=== PATIENT | female | born 1980 | race Caucasian/White ===

== ENCOUNTER → 2017-05-31 | Outpatient (CLI) | payer BC ==
[~2017-05-31] MED LIST: ACET500C PO; ANUS2.5C2 PR; COLA100C5 PO; IBUP200C10 PO; MILKSUS PO
[2017-05-31 09:42] LABS: FREE T4 2.25 NG/DL (0.76-1.46)
[2017-05-31 09:44] LABS: PROLACTIN 6.8 NG/ML
== END ==
LOC: M LAB 08:45
PROVIDERS: ATTEND Nurse Practitioner Women's Health
DX: N91.2 Amenorrhea, unspecified (principal)

== ENCOUNTER → 2017-07-06 | Outpatient (REF) | payer BC ==
[2017-07-06 13:04] LABS: FREE T4 2.27 NG/DL (0.76-1.46)
[2017-07-07 08:49] LABS: THYROID PEROXIDASE ANTIBODY < 28.0 U/ML (<60.0)
== END ==
LOC: M LABDRAW1 10:51
DX: R94.6 Abnormal results of thyroid function studies (principal)
CPT/HCPCS: 84443

== ENCOUNTER 2020-04-14 19:09 | Emergency (ER) | payer BC ==
[~2020-04-14] VITALS: Ht 175.3 cm; Wt 123.8 kg
[~2020-04-14 19:09] MED LIST changes: -IBUP200C10 PO; +IBUP200C25 PO; +MILK120011 PO; -MILKSUS PO
[2020-04-14 19:10] VITALS: BP 137/83
[2020-04-14] MEDS ORDERED: AUGMENTIN 875 MG TAB PO ONE (20:00)
[2020-04-14] MEDS ORDERED: AUGM875T28 PO (20:04)
== END 2020-04-14 20:17 | disposition home or self-care (01) ==
LOC: M ED 19:09
DX: K61.1 Rectal abscess (principal); Z87.891 Personal history of nicotine dependence; Z88.8 Allergy status to other drugs, medicaments and biological substances

== ENCOUNTER 2020-04-18 19:36 | Emergency (ER) | payer BC ==
[~2020-04-18] VITALS: Ht 175.3 cm; Wt 121.5 kg
[~2020-04-18 19:36] MED LIST changes: +AUGM875T28 PO
[2020-04-18 19:37] VITALS: BP 122/74
[2020-04-18] MEDS ORDERED: LIDOCAINE W/EPINEPHRINE 1% 20ML VIAL SC ONE (21:00)
== END 2020-04-18 21:34 | disposition home or self-care (01) ==
LOC: M ED 19:36
DX: K61.1 Rectal abscess (principal); Z88.0 Allergy status to penicillin

== ENCOUNTER → 2020-05-06 | Outpatient (REF) | payer BC ==
[2020-05-06 17:12] LABS: HEMATOCRIT 42.6 % (36.0-47.0); HEMOGLOBIN 13.7 g/dl (12.0-15.5); MEAN CORPUSCULAR HEMOGLOBIN 28.5 pg (27.0-33.0); MEAN CORPUSCULAR HGB CONC 32.2 g/dl (32.0-36.5); MEAN CORPUSCULAR VOLUME 88.6 fl (80.0-96.0); PLATELET COUNT, AUTOMATED 199 10^3/uL (150-450); RED BLOOD COUNT 4.81 10^6/uL (4.00-5.40); WHITE BLOOD COUNT 4.6 10^3/uL (4.0-10.0)
[2020-05-06 17:34] LABS: ALBUMIN 3.7 GM/DL (3.2-5.2); ALT/SGPT 37 U/L (12-78); BILIRUBIN,TOTAL 0.5 MG/DL (0.2-1.0); BLOOD UREA NITROGEN 12 MG/DL (7-18); CARBON DIOXIDE LEVEL 29 MEQ/L (21-32); CHLORIDE LEVEL 108 MEQ/L (98-107); CHOLESTEROL LEVEL 163 MG/DL (<200); CHOLESTEROL RISK RATIO 3.196 (<5); CREATININE FOR GFR 0.76 MG/DL (0.55-1.30); GLOMERULAR FILTRATION RATE > 60.0 (>60); GLUCOSE, FASTING 91 MG/DL (70-100); HDL CHOLESTEROL 51 MG/DL (>40); LDL CHOLESTEROL 89 MG/DL (<100); NON-HDL-C 112 MG/DL; POTASSIUM SERUM 4.9 MEQ/L (3.5-5.1); SODIUM LEVEL 140 MEQ/L (136-145); TOTAL 25(OH) VITAMIN D 36.9 NG/ML (30.0-100.0); TOTAL PROTEIN 7.1 GM/DL (6.4-8.2); TRIGLYCERIDES LEVEL 117 MG/DL (<150)
== END ==
LOC: M LAB REF 16:12
PROVIDERS: ATTEND Physician Assistant
DX: Z13.228 Encounter for screening for other metabolic disorders (principal)

== ENCOUNTER → 2022-11-02 | Outpatient (REF) | payer BC | LOC: M SFHCWAGY 18:12 | PROVIDERS: ATTEND Nurse Practitioner Family | DX: Z12.4 Encounter for screening for malignant neoplasm of cervix (principal) ==

== ENCOUNTER → 2023-01-27 | Outpatient (CLI) | payer BC | LOC: M WHC 15:51 | PROVIDERS: ATTEND Nurse Practitioner Family | DX: Z12.31 Encounter for screening mammogram for malignant neoplasm of breast (principal) ==

== ENCOUNTER → 2025-03-09 | Outpatient (REF) | payer OTHER | LOC: M LAB REF 12:08 | PROVIDERS: ATTEND Physician Assistant Medical | DX: B34.9 Viral infection, unspecified (principal) ==

== ENCOUNTER 2025-04-16 11:25 | Emergency (ER) | payer OTHER ==
[~2025-04-16] VITALS: Ht 177.8 cm; Wt 172.4 kg
[2025-04-16 14:21] VITALS: BP 108/62; TEMP 97.9; O2SAT 99
[2025-04-16] MEDS ORDERED: DEBR6.5S4 OTIC (17:22)
== END 2025-04-16 18:16 | disposition home or self-care (01) ==
LOC: M ED 11:25
DX: S80.11XA Contusion of right lower leg, initial encounter (principal); J45.909 Unspecified asthma, uncomplicated; F41.9 Anxiety disorder, unspecified; Z88.1 Allergy status to other antibiotic agents; Z91.09 Other allergy status, other than to drugs and biological substances; Z79.2 Long term (current) use of antibiotics; Y92.9 Unspecified place or not applicable; Y93.89 Activity, other specified; Y99.9 Unspecified external cause status